=== PATIENT | male | born 1985 | race Caucasian/White ===

== ENCOUNTER 2024-07-05 14:01 | Emergency (ER) | payer BC ==
[~2024-07-05] VITALS: Ht 175.3 cm; Wt 99.8 kg
[2024-07-05 14:21] VITALS: TEMP 98.1
[2024-07-05] MEDS ORDERED: ONDANSETRON HCL/PF 4 MG/2 ML VIAL ONE ×2 (15:04→16:29)
[2024-07-05] MEDS ORDERED: MORPHINE SULFATE INJ 4 MG/ML DISP.SYRIN ONE (15:04)
[2024-07-05] MEDS: MORPHINE SULFATE INJ 2 MG/ML DISP.SYRIN IV ONE (15:06)
[2024-07-05] MEDS: IV NS 0.9% 1,000 ML BAG IV ONE (15:06)
[2024-07-05] MEDS: ONDANSETRON HCL/PF 4 MG/2 ML VIAL IVP ONE (15:06)
[2024-07-05 15:34] LABS: BASOPHILS # (AUTO) 0.1 K/uL (0.0-0.2); BASOPHILS % (AUTO) 0.6 % (0.0-2.0); EOSINOPHILS # (AUTO) 0.1 K/uL (0.0-0.7); EOSINOPHILS % (AUTO) 1.5 % (0.0-6.0); HEMATOCRIT 35 % (39-51); HEMOGLOBIN 11.7 g/dL (13.5-17.5); LYMPHOCYTES # (AUTO) 0.8 K/uL (0.8-4.8); LYMPHOCYTES % (AUTO) 9.2 % (20.0-44.0); MEAN CORPUSCULAR HEMOGLOBIN 28 PG (26.0-33.0); MEAN CORPUSCULAR HGB CONC 34 g/dl (31.0-36.0); MEAN CORPUSCULAR VOLUME 84 fL (80-96); MONOCYTES % (AUTO) 11.6 % (2.0-12.0); NEUTROPHILS % (AUTO) 77.1 % (43.0-81.0); PLATELET COUNT (AUTO) 326 K/uL (150-450); RED BLOOD CELL COUNT(AUTO) 4.17 MIL/uL (4.5-6.0); RED CELL DISTRIBUTION WIDTH 17.6 % (11.5-15.0)
[2024-07-05 15:49] LABS: CALCIUM, SERUM 8.8 mg/dL (8.5-10.1); CREATININE 0.8 mg/dL (0.6-1.3); POTASSIUM 3.5 mmol/L (3.5-5.1)
[2024-07-05 15:58] LABS: ALBUMIN 3.8 g/dL (3.4-5.0); BILIRUBIN,DIRECT 0.1 mg/dL (0.0-0.2); BILIRUBIN,TOTAL 0.1 mg/dL (0.2-1.0); TOTAL PROTEIN, SERUM 7.5 g/dL (6.4-8.2)
[2024-07-05] MEDS ORDERED: DOXY100C2 PO (16:27)
[2024-07-05] MEDS ORDERED: ALBU18HF2 INH (16:27)
[2024-07-05] MEDS ORDERED: AMOX-430 PO (16:27)
[2024-07-05] MEDS: DICYCLOMINE HCL INJ 20 MG/2 ML AMPUL IM ONE (16:28)
[2024-07-05] MEDS: ONDANSETRON HCL/PF 4 MG/2 ML VIAL IV ONE (16:28)
[2024-07-05] MEDS ORDERED: DICYCLOMINE HCL INJ 20 MG/2 ML AMPUL IM ONE (16:29)
[2024-07-05 16:39] VITALS: BP 132/80; O2SAT 100
== END 2024-07-05 16:40 | disposition home or self-care (01) ==
LOC: ER 14:43
DX: J20.9 Acute bronchitis, unspecified (principal); R10.84 Generalized abdominal pain; K92.1 Melena; R05.9 Cough, unspecified; R09.81 Nasal congestion; R10.32 Left lower quadrant pain; Z88.2 Allergy status to sulfonamides; Z88.5 Allergy status to narcotic agent
CPT/HCPCS: 99285; 74176; 96374; 71045; 96361; 96375; 93005 ×2; 96376; 85025; 80048; 83690; 80076; 36415; J2270; J2405 ×2; J7030; J0500